=== PATIENT | female | born 1940 | race Caucasian/White ===

== ENCOUNTER 2017-02-09 14:51 | Emergency (ER) | payer MEDICARE, MEDICAID ==
[~2017-02-09 14:51] MED LIST: ELIQUIS2.5 MG PO; HYZAAR 50-12.51 TAB PO; KLOR-CON M2020 ME1 PO; LAMICTAL DPS100 MG PO; MOBIC DPS7.5 MG PO; OCUVITE SOFTGE1 EACH PO; OMEGA-3 DPS1000 MG PO; OXY IR DPS5 MG PO; PRILOSEC DPS20 MG PO; SENOKOT S1 TAB PO; THERA1 EACH PO; TYLENOL DPS325 MG PO; VITAMIN D1000 UNIT PO; VITAMIN E400 UNIT PO; ZOFRAN4 MG PO; ZYRTEC DPS10 MG PO
--- NOTE | 2017-02-09 18:09 | ER ---
ADMIT: 02/09/2017 RM/LOC: ER [facility] MR#: [id number] [facility] [address] [place], [place] [id number] SHANTE MURRAY [address] [address] Emergency Room Report SEX: F AGE: 76 : 1940 DATE: 02/09/2017 ADDENDUM: CHIEF COMPLAINT: Dizziness. HISTORY OF PRESENT ILLNESS: This is a 76-year-old female, who actually has a history of having vertigo intermittently. She says she has meclizine at home, but it was very old, so she did not want to take it. This started this morning when she woke up. She said she got out of bed, she just felt very dizzy. Usually she takes a shower and she said her vertigo was so bad that she was not able to shower and had to go back and lay in bed. I did give her a couple options of doing lab work versus just giving her meclizine and see if that resolves her symptoms. She wanted to just try the meclizine to see if that would help. I did give her the meclizine. She said she feels significantly better, feels okay to go home. I told her to follow up with primary care physician if any symptoms worsen. CLINICAL IMPRESSION: Vertigo. DISPOSITION: She is sent home with meclizine 25 mg, I dispensed 20 tablets to her. ZENIA Garcia / Stewart Corrales MD / zhou JOB #: [id number] CC: Stewart Corrales MD, Attending Physician Kyle Babb MD, Family Physician
== END 2017-02-09 16:02 | disposition home or self-care (01) ==
LOC: ER 14:51
DX: R42 Dizziness and giddiness (principal); I10 Essential (primary) hypertension; Z79.899 Other long term (current) drug therapy; Z79.82 Long term (current) use of aspirin